=== PATIENT | female | born 1950 | race Caucasian/White ===

== ENCOUNTER 2021-02-21 16:44 | Emergency (ER) | payer MEDICARE, OTHER ==
[~2021-02-21] VITALS: Ht 157.5 cm; Wt 65.9 kg
--- NOTE | 2021-02-21 17:21 | EKG ---
[address] [address] Test Date: 2021-02-21 Test Time: 16:49:57 Pat Name: ABHINAV LOCO Department: Room: Gender: F Controls Design Engineer: : [id number] Requested By: LOREE MOREJON Order Number: [id number] Reading MD: Measurements Intervals [place] Rate: 93 P: 11 HI: 172 QRS: 11 QRSD: 86 T: 43 QT: 360 QTc: 450 Interpretive Statements SINUS RHYTHM NO SPECIFIC ECG ABNORMALITIES RI6.02 No previous ECG available for comparison
[2021-02-21 17:23] LABS: BASO # 0.1 x10^3/uL (0.0-0.2); BASO % 1 % (0-3); EOS # 0.1 x10^3/uL (0.0-0.7); EOS % 1 % (0-3); HEMATOCRIT 39.9 % (36.0-47.0); HEMOGLOBIN 13.7 g/dL (12.0-15.5); LYMPH # 2.1 x10^3/uL (1.0-4.8); LYMPH % 28 % (24-48); MEAN CORPUSCULAR HEMOGLOBIN 32 pg (25-35); MEAN CORPUSCULAR HGB CONC 34 g/dL (31-37); MEAN CORPUSCULAR VOLUME 94 fL (79-100); MONO # 0.5 x10^3/uL (0.0-1.1); MONO % 6 % (0-9); NEUT # 4.7 x10^3uL (1.8-7.7); NEUT % 63 % (31-73); PLATELET COUNT 265 x10^3/uL (140-400); RED BLOOD COUNT 4.25 x10^6/uL (3.50-5.40); RED CELL DISTRIBUTION WIDTH 13.3 % (11.5-14.5); WHITE BLOOD COUNT 7.4 x10^3/uL (4.0-11.0)
--- NOTE | 2021-02-21 17:25 | RAD ---
EXAM: Chest, single view. HISTORY: Chest pain. COMPARISON: None. FINDINGS: A frontal view of the chest is obtained. There is no infiltrate, pleural effusion or pneumo thorax. The heart is normal in size. IMPRESSION: No acute pulmonary finding. Electronically signed by: Anette Macias MD (02/21/2021 5:23 PM) [facility]
[2021-02-21 17:36] LABS: CALCIUM 9.5 mg/dL (8.5-10.1); CREATININE 1.1 mg/dL (0.6-1.0); POTASSIUM 3.5 mmol/L (3.5-5.1)
--- NOTE | 2021-02-21 17:40 | PHYS DOC ---
Past History Past Medical History: GERD, High Cholesterol, Hypertension Past Surgical History: Other Additional Past Surgical Histo: 3 , D&C Alcohol Use: None General Adult EDM: Chief Complaint: CHEST PAIN HPI: HPI: Patient is a 70-year-old female who presents with chest heaviness and palpitations since last night. Patient states that she went to urgent care and was told to come to the emergency room for further evaluation. Patient states "I feel like my bra feels too tight". Denies taking anything prior to arrival. Patient denies nausea/vomiting. Denies shortness of breath. Denies dizziness. History of hypertension, GERD, anxiety. Review of Systems: Review of Systems: Constitutional: Denies fever or chills Eyes: Denies change in visual acuity HENT: Denies nasal congestion or sore throat Respiratory: Denies cough or shortness of breath Cardiovascular: Denies chest pain or edema GI: Denies abdominal pain, nausea, vomiting, bloody stools or diarrhea : Denies dysuria Musculoskeletal: Denies back pain or joint pain Integument: Denies rash Neurologic: Denies headache, focal weakness or sensory changes Endocrine: Denies polyuria or polydipsia Lymphatic: Denies swollen glands Psychiatric: Denies depression, reports anxiety Physical Exam: PE: Constitutional: Well developed, well nourished, no acute distress, non-toxic appearance. [] HENT: Normocephalic, atraumatic, bilateral external ears normal, oropharynx moist, no oral exudates, nose normal. [] Eyes: PERRLA, EOMI, conjunctiva normal, no discharge. [] Neck: Normal range of motion, no tenderness, supple, no stridor. [] Cardiovascular:Heart rate regular rhythm, no murmur [] Lungs & Thorax: Bilateral breath sounds clear to auscultation [] Abdomen: Bowel sounds normal, soft, no tenderness, no masses, no pulsatile masses. [] Skin: Warm, dry, no erythema, no rash. [] Back: No tenderness, no CVA tenderness. [] Extremities: No tenderness, no cyanosis, no clubbing, ROM intact, no edema. [] Neurologic: Alert and oriented X 3, normal motor function, normal sensory function, no focal deficits noted. [] Psychologic: Affect normal, judgement normal, mood normal. [] Current Patient Data: Labs: Laboratory Tests Test 4/12/21 16:55 White Blood Count 7.4 x10^3/uL (4.0-11.0) Red Blood Count 4.25 x10^6/uL (3.50-5.40) Hemoglobin 13.7 g/dL (12.0-15.5) Hematocrit 39.9 % (36.0-47.0) Mean Corpuscular Volume 94 fL (79-100) Mean Corpuscular Hemoglobin 32 pg (25-35) Mean Corpuscular Hemoglobin Concent 34 g/dL (31-37) Red Cell Distribution Width 13.3 % (11.5-14.5) Platelet Count 265 x10^3/uL (140-400) Neutrophils (%) (Auto) 63 % (31-73) Lymphocytes (%) (Auto) 28 % (24-48) Monocytes (%) (Auto) 6 % (0-9) Eosinophils (%) (Auto) 1 % (0-3) Basophils (%) (Auto) 1 % (0-3) Neutrophils # (Auto) 4.7 x10^3uL (1.8-7.7) Lymphocytes # (Auto) 2.1 x10^3/uL (1.0-4.8) Monocytes # (Auto) 0.5 x10^3/uL (0.0-1.1) Eosinophils # (Auto) 0.1 x10^3/uL (0.0-0.7) Basophils # (Auto) 0.1 x10^3/uL (0.0-0.2) Vital Signs: Vital Signs Date Time Temp Pulse Resp B/P (MAP) Pulse Ox O2 Delivery O2 Flow Rate FiO2 02/21/21 16:54 98.0 85 16 147/70 (95) 97 Room Air EKG: EKG: Sinus rhythm. Heart rate 93 bpm. Intervals normal. [place] normal. [] Radiology/Procedures: Radiology/Procedures: []EXAM: Chest, single view. HISTORY: Chest pain. COMPARISON: None. FINDINGS: A frontal view of the chest is obtained. There is no infiltrate, pleural effusion or pneumothorax. The heart is normal in size. IMPRESSION: No acute pulmonary finding. Electronically signed by: Anette Macias MD (02/21/2021 5:23 PM) [facility] Heart Score: C/O Chest Pain: Yes HEART Score for Chest Pain: HEART Score for Chest Pain Response (Comments) Value History Moderately Suspicious 1 ECG Normal 0 Age > 65 2 Risk Factors 1 or 2 Risk Factors 1 Troponin < Normal Limit 0 Total 4 Risk Factors: Risk Factors: DM, Current or recent (<one month) smoker, HTN, HLP, family history of CAD, obesity. Risk Scores: Score 0 - 3: 2.5% MACE over next 6 weeks - Discharge Home Score 4 - 6: 20.3% MACE over next 6 weeks - Admit for Clinical Observation Score 7 - 10: 72.7% MACE over next 6 weeks - Early Invasive Strategies Course & Med Decision Making: Course & Med Decision Making Pertinent Labs and Imaging studies reviewed. (See chart for details) [] Patient is reporting heaviness and palpitations. Chest x-ray is negative for any acute abnormalities. EKG shows heart rate 93 bpm. Sinus rhythm. All labs unremarkable. Troponin is negative. Heart score of 4. Instructed patient to follow-up with PCP for referral for cardiology. Discussed with patient about speaking with PCP regarding anxiety and insomnia. Patient is hemodynamically stable. Patient to return emergency room with worsening symptoms or concerns. Dragon Disclaimer: [employer] Disclaimer: This electronic medical record was generated, in whole or in part, using a voice recognition dictation system. Departure Departure: Impression: Primary Impression: Chest heaviness Additional Impression: Anxiety Disposition: 01 HOME / SELF CARE / HOMELESS Condition: STABLE Referrals: JOES BUCKLEY (PCP) Patient Instructions: Chest Pain (Nonspecific), [id number] Additional Instructions: You were seen in the emergency room for chest heaviness and palpitations. Your EKG was negative for any acute abnormalities. Your chest x-ray and lab work were all negative. Please call your PCP tomorrow to make an appointment for follow-up and referral for cardiology. Please return to emergency room with worsening symptoms or concerns. EMERGENCY DEPARTMENT GENERAL DISCHARGE INSTRUCTIONS Thank you for coming to [facility] (ED) today and trusting us with you care. We trust that you had a positivie experience in our Emergency Department. If you wish to speak to the department management, you may call the director at [phone]. YOUR FOLLOW UP INSTRUCTIONS ARE FOLLOWS: 1. Do you have a private Doctor? If you do not have a private doctor, please ask for a resource list of physicians or clinics that may be able to assist you with follow up care. 2. The Emergency Physician has interpreted your x-rays. The X-Ray specialist w ill also review them. If there is a change in the findings, you will be notified in 48 hours when at all possible. 3. A lab test or culture has been done, your results will be reviewed and you will be notified if you need a change in treatment. ADDITIONAL INSTRUCTIONS AND INFORMATION: 1. Your care today has been supervised by a physician who is specially trained in emergency care. Many problems require more than one evaluation for a complete diagnosis and treatment. We recommend that you schedule your follow up appointment as recommended to ensure complete treatment of you illness or injury. If you are unable to obtain follow up care and continue to have a problem, or if your condition worsens, we recommend that you return to the ED. 2. We are not able to safely determine your condition over the phone nor are we able to give sound medical advice over the phone. For these safety reasons, if you call for medical advice we will ask you to come to the ED for further evaluation. 3. If you have any questions regarding these discharge instructions please call the ED at [phone]. SAFETY INFORMATION: In the interest of safety, wellness, and injury prevention; we encourage you to wear your sealbelt, if you smoke; quite smoking, and we encourage family to use a protective helmet for bicycling and other sporting events that present an increased risk for head injury. IF YOUR SYMPTOMS WORSEN OR NEW SYMPTOMS DEVELOP, OR YOU HAVE CONCERNS ABOUT YOUR CONDITION; OR IF YOUR CONDITION WORSENS WHILE YOU ARE WAITING FOR YOUR FOLLOW UP APPOINTMENT; EITHER CONTACT YOUR PRIMARY CARE DOCTOR, THE PHYSICIAN WHOSE NAME AND NUMBER YOU WERE GIVEN, OR RETURN TO THE ED IMMEDIATELY. LOREE MOREJON APRN Feb 21, 2021 17:40
[2021-02-21 17:44] LABS: ALBUMIN 4.2 g/dL (3.4-5.0); ALBUMIN/GLOBULIN RATIO 1.2 (1.0-1.7); TOTAL BILIRUBIN 0.4 mg/dL (0.2-1.0); TOTAL PROTEIN 7.8 g/dL (6.4-8.2)
[2021-02-21 17:56] VITALS: BP 139/69
== END 2021-02-21 18:36 | disposition home or self-care (01) ==
LOC: ER 16:44
DX: R07.89 Other chest pain (principal); F41.9 Anxiety disorder, unspecified; K21.9 Gastro-esophageal reflux disease without esophagitis; E78.00 Pure hypercholesterolemia, unspecified; I10 Essential (primary) hypertension
CPT/HCPCS: 36415; 71045; 80053; 84484; 85025; 93005; 99285-25

== ENCOUNTER → 2021-07-14 | Outpatient (CLI) | payer MEDICARE, OTHER ==
--- NOTE | 2021-07-14 13:37 | RAD ---
CT THORACIC SPINE WO dated 07/14/2021 9:50 AM Indication:Reason: ABNORMAL FINDING DURING CARDIAC IMAGING- SCLEROTIC LESION T12 / Spl. Instructions: / History: Comparison: No comparison is available. Technique: Helical noncontrast images were performed. Sagittal and coronal reconstructions were obtai fracisco. One or more of the following individualized dose reduction techniques were utilized for this examinat ion: 1. Automated exposure control 2. Adjustment of the mA and/or kV according to patient size 3. Use of iterative reconstruction technique Findings: Alignment of the spine is normal. No fracture or destructive process is seen. At T11, there is an are a of sclerosis toward the left side of the vertebral body. An area of fat density is seen on the left within the L1 vertebral body. No other area of abnormal density is seen in the vertebral bodies. Celeste luation of the soft tissue structures of the canal is limited without intrathecal contrast, but there is no obvious large disc protrusion. Paraspinal structures show a small callus cases in the lower left kidney and a cyst in the upper pole the left kidney. There is evidence of a small hiatal hernia. IMPRESSION: There is an area of sclerosis involving the left side of the T11 vertebral body. The appearance is no nspecific, but unless the patient has a history of malignancy such as breast cancer, this is likely b enign incidental finding. This could be a sclerosed hemangioma. If further imaging evaluation is need ed, whole body bone scan may be useful. Electronically signed by: Dwayne Zapata Jr., MD (07/14/2021 1:34 PM) [id number]
== END ==
LOC: CT 09:44
PROVIDERS: ATTEND Family Medicine
DX: G95.89 Other specified diseases of spinal cord (principal); N28.1 Cyst of kidney, acquired; K44.9 Diaphragmatic hernia without obstruction or gangrene
CPT/HCPCS: 72128